=== PATIENT | female | born 1995 | race Two or more races ===

== ENCOUNTER → 2017-02-05 | Outpatient (CLI) | payer SELFPAY ==
--- NOTE | 2017-02-05 14:45 | RADIOLOGY REPORT (SQ) ---
EXAM DESCRIPTION: U/S [id number] TRNABD 1GES W/ODOP COMPLETED DATE/TIME: 02/05/2017 2:34 pm REASON FOR STUDY: Z34.81 ENCOUNTER FOR SUPRVSN OF NORMAL , FIRST TRIM COMPARISON: None. TECHNIQUE: Transabdominal static and realtime grayscale images acquired of the pelvis. Additional se lected spectral and color Doppler images recorded. All images stored on PACs. bHCG: Not applicable. LIMITATIONS: None. FINDINGS: FETUS: Living intrauterine . EGA: 9 week 6 day. MANISH: 09/04/2017. FHR: 171 beats per minute. SUBCHORIONIC BLEED: No. SIZE OF BLEED: Not applicable. UTERUS: No masses. No anomalies. CERVICAL LENGTH: 4.2 cm. Closed. RIGHT ADNEXA: Ovary not identified. No adnexal free fluid. No adnexal masses. LEFT ADNEXA: Ovary not identified. No adnexal free fluid. No adnexal masses. FREE FLUID: None. OTHER: No other significant finding. IMPRESSION: LIVING INTRAUTERINE . EGA 9 WEEK 6 DAY. Trimester of : First - 0 to 13 weeks. TECHNICAL DOCUMENTATION: JOB ID: [id number] [employer]- All Rights Reserved
== END ==
LOC: RAD 13:53
PROVIDERS: ATTEND Nurse Practitioner Women's Health
DX: Z34.81 Encounter for supervision of other normal pregnancy, first trimester (principal)
CPT/HCPCS: 76801

== ENCOUNTER 2017-03-17 08:22 | Emergency (ER) | payer SELFPAY ==
[2017-03-17] MEDS ORDERED: METOCLOPRAMIDE HCL INJ/PF 10 MG/2 ML SDV IV ONE (08:53)
[2017-03-17] MEDS: NORMAL SALINE 1000 ML 1,000 ML IV PRN ×2 (09:05→09:48)
[2017-03-17 09:35] LABS: ABSOLUTE LYMPHOCYTES (AUTO) 1.5 10^3/uL (0.5-4.7); ABSOLUTE MONOCYTES (AUTO) 0.9 10^3/uL (0.1-1.4); ABSOLUTE NEUT (AUTO) 9.7 10^3/uL (1.7-8.2); BASOPHILS % (AUTO) 0.3 % (0-2); EOSINOPHILS % (AUTO) 0.2 % (0-6); HEMATOCRIT 39.4 % (36.0-47.0); HEMOGLOBIN 13.5 g/dL (12.0-15.5); HGB HCT DIFFERENCE 1.1; LYMPHOCYTES % (AUTO) 12.4 % (13-45); MEAN CORPUSCULAR HEMOGLOBIN 30.5 pg (27.0-33.4); MEAN CORPUSCULAR HGB CONC 34.3 g/dL (32.0-36.0); MEAN CORPUSCULAR VOLUME 89 fl (80-97); MONOCYTES % (AUTO) 7.4 % (3-13); RED BLOOD COUNT 4.43 10^6/uL (3.72-5.28); RED CELL DISTRIBUTION WIDTH 13.1 % (11.5-14.0); SEGMENTED NEUTROPHILS % (AUTO) 79.7 % (42-78); WHITE BLOOD COUNT 12.1 10^3/uL (4.0-10.5)
[2017-03-17 09:38] LABS: APPEARANCE,URINE CLOUDY; BILIRUBIN,URINE NEGATIVE (NEGATIVE); GLUCOSE, URINE 50 mg/dL (NEGATIVE); KETONES,URINE 80 mg/dL (NEGATIVE); LEUKOCYTE ESTERASE,URINE TRACE (NEGATIVE); NITRITE,URINE NEGATIVE (NEGATIVE); PROTEIN,URINE 100 mg/dL (NEGATIVE); URINE SPECIFIC GRAVITY 1.029; UROBILINOGEN,URINE NEGATIVE mg/dL (<2.0)
[2017-03-17 09:54] LABS: ALANINE AMINOTRANSFERASE 27 U/L (5-35); ALBUMIN 5.2 g/dL (3.7-5.6); ALKALINE PHOSPHATASE 100 U/L (50-135); ASPARTATE AMINO TRANSFERASE 25 U/L (5-30); BILIRUBIN,DIRECT 0.6 mg/dL (0.0-0.4); BILIRUBIN,TOTAL 0.9 mg/dL (0.2-1.3); BLOOD UREA NITROGEN 10 mg/dL (7-20); CALCIUM 11.1 mg/dL (8.4-10.2); CARBON DIOXIDE 16 mmol/L (22-30); CHLORIDE 105 mmol/L (98-107); CREATININE RESULT 0.54 mg/dL (0.52-1.25); GLUCOSE 71 mg/dL (75-110); LIPASE 140.6 U/L (23-300); TOTAL PROTEIN 8.4 g/dL (6.3-8.2)
[2017-03-17 10:20] LABS: POTASSIUM 3.9 mmol/L (3.6-5.0); SODIUM 141.4 mmol/L (137-145)
[2017-03-17 10:23] LABS: ANION GAP 20 (5-19)
--- NOTE | 2017-03-17 12:21 | ER Document Report ---
ED General - General Chief Complaint: Nausea/Vomiting Stated Complaint: VOMITING Time Seen by Provider: 03/17/17 08:53 TRAVEL OUTSIDE OF THE [place] IN LAST 30 DAYS: No - HPI Patient complains to provider of: Nausea vomiting Notes: Patient is coming approximate 15 weeks for nausea vomiting. Patient states that she was on samples of likely just by the health department and however has ran out. Patient states vomiting for the last 2 days feels she is getting hydrated. Patient is a . 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 Patient denies any other medical problems denies any antibiotics or recent travel. Patient denies any fevers chills nausea vomiting chest pain abdominal pain vaginal bleeding dysuria. - Related Data Allergies/Adverse Reactions: No Known Allergies Allergy (Verified 03/17/17 08:26) Home Medications: Current Home Medications Pnv No.122/Iron/Folic Acid [ Multi Tablet] 1 each PO DAILY 03/17/17 [ History] Past Medical History - Social History Smoking Status: Former Smoker Frequency of alcohol use: None Drug Abuse: None Family History: Reviewed & Not Pertinent Renal/ Medical History: Denies: Hx Peritoneal Dialysis Surgical Hx: Negative - Immunizations Immunizations up to date: Yes Hx Diphtheria, Pertussis, Tetanus Vaccination: Yes Review of Systems - Review of Systems Constitutional: No symptoms reported EENT: No symptoms reported Cardiovascular: No symptoms reported Respiratory: No symptoms reported Gastrointestinal: Nausea, Vomiting Genitourinary: No symptoms reported Female Genitourinary: No symptoms reported Musculoskeletal: No symptoms reported Skin: No symptoms reported Hematologic/Lymphatic: No symptoms reported Neurological/Psychological: No symptoms reported -: Yes All other systems reviewed and negative Physical Exam - Vital signs Vitals: Temp Pulse Resp BP Pulse Ox 98.7 F 110 H 16 138/88 H 99 03/17/17 08:27 03/17/17 08:27 03/17/17 08:27 03/17/17 08:27 03/17/17 08:27 Interpretation: Normal - General General appearance: Appears well, Alert - HEENT Head: Normocephalic, Atraumatic Eyes: Normal Pupils: PERRL - Respiratory Respiratory status: No respiratory distress Chest status: Nontender Breath sounds: Normal Chest palpation: Normal - Cardiovascular Rhythm: Regular Heart sounds: Normal auscultation Murmur: No - Abdominal Inspection: Normal Distension: No distension Bowel sounds: Normal Tenderness: Nontender Organomegaly: No organomegaly - Back Back: Normal, Nontender - Extremities General upper extremity: Normal inspection, Nontender, Normal color, Normal ROM , Normal temperature General lower extremity: Normal inspection, Nontender, Normal color, Normal ROM , Normal temperature, Normal weight bearing. No: Rahul's sign - Neurological Neuro grossly intact: Yes Cognition: Normal Orientation: AAOx4 [place] Coma Scale Eye Opening: Spontaneous [place] Coma Scale Verbal: Oriented [place] Coma Scale Motor: Obeys Commands [place] Coma Scale Total: 15 Speech: Normal Motor strength normal: LUE, RUE, LLE, RLE Sensory: Normal - Psychological Associated symptoms: Normal affect, Normal mood - Skin Skin Temperature: Warm Skin Moisture: Dry Skin Color: Normal Course - Re-evaluation Re-evalutation: 03/17/17 13:34 The patient presents with nausea vomiting without signs of peritonitis or other life-threatening or serious etiology. The patient appears stable for discharge and has been instructed to return immediately if the symptoms worsen in any way , or in 8-12hr if not improved for re-evaluation. The patient has been instructed to return if the symptoms worsen or change in any way. Patient urinalysis that showed ketosis and protein however this is more likely related to dehydration status. Patient was given 2 L of fluid here and was able to drink Gatorade while here. Will discharge patient home on Reglan other [id number] options were given to the patient. Patient will be discharged home. - Vital Signs Vital signs: Temp Pulse Resp BP Pulse Ox 98.7 F 84 18 110/54 L 100 03/17/17 12:26 03/17/17 12:26 03/17/17 12:26 03/17/17 12:26 03/17/17 12:26 - Laboratory Result Diagrams: 03/17/17 09:06 03/17/17 09:06 Laboratory results interpreted by me: 03/17/17 03/17/17 03/17/17 09:06 09:06 09:06 WBC 12.1 H Seg Neutrophils % 79.7 H Lymphocytes % 12.4 L Absolute Neutrophils 9.7 H Carbon Dioxide 16 L Anion Gap 20 H Glucose 71 L Calcium 11.1 H Direct Bilirubin 0.6 H Total Protein 8.4 H Beta HCG, Quant 12653.00 H Urine Protein 100 H Urine Glucose (UA) 50 H Urine Ketones 80 H Ur Leukocyte Esterase TRACE H Urine Ascorbic Acid 40 H Discharge - Discharge Clinical Impression: Nausea/vomiting in Condition: Good Disposition: HOME, SELF-CARE Instructions: Dehydration ([facility]), ([facility]), Vomiting ([facility]) Additional Instructions: You have been seen for vomiting during . You should continue to drink plenty of water and consider taking a solution such as Pedialyte if your having difficulty eating food. Please return if you become unable to drink any fluids for more than 12 hours, urinate less than twice a day, pass out, or have any other symptoms that are concerning to you. For nausea and vomiting during I recomment: Start with 10-12.5 mg of pyridoxine (vitamin B6) three times a day for 2 days. If not fully effective, Increase to 12.5 mg of pyridoxine four times a day for 2 days. If not fully effective, Increase to 25 mg of pyridoxine three times a day for 2 days. If not fully effective, Continue 25 mg pyridoxine 3 times a day, and add 12.5 mg of doxylamine before bedtime each day for 2 days. If not fully effective, Continue 25 mg pyridoxine 3 times a day, and take 12.5 mg of doxylamine twice a day. If not fully effective, Continue 25 mg pyridoxine 3 times a day, and take 12.5 mg of doxylamine three times a day. If not fully effective, Continue 25 mg pyridoxine 3 times a day, and 12.5 mg of doxylamine 3 times a day , while adding Emetrol, one to two tablespoons (15-30 cc) taken once or twice a day as needed. (Emetrol is an gqqy-lcb-awodaes mixture of sugar syrups and phosphoric acid [phosphorylated carbohydrate solution]) that acts by soothing the actual wall of the gastrointestinal tract). If not fully effective, Consult with your doctor. Follow-up with your primary care physician return to the ER symptoms worsen he may also try the Reglan prescribed. Prescriptions: Metoclopramide HCl [Reglan] 5 mg PO Q6 #30 tablet Forms: Return to Work
[2017-03-17 12:46] VITALS: BP 110/54
== END 2017-03-17 12:47 | disposition home or self-care (01) ==
LOC: ER 08:22
DX: O21.9 Vomiting of pregnancy, unspecified (principal); Z3A.15 15 weeks gestation of pregnancy
CPT/HCPCS: 99284; 96361; 96374; 36415; 84702; 83690; 85025; 80053; 81001; J2765; J7030

== ENCOUNTER 2017-04-10 22:25 | Emergency (ER) | payer SELFPAY ==
[2017-04-10 22:36] VITALS: BP 124/62
== END 2017-04-10 23:18 | disposition left against medical advice (07) ==
LOC: ER 22:25
DX: Z53.21 Procedure and treatment not carried out due to patient leaving prior to being seen by health care provider (principal)

== ENCOUNTER → 2017-04-24 | Outpatient (CLI) | payer SELFPAY ==
--- NOTE | 2017-04-24 14:18 | RADIOLOGY REPORT (SQ) ---
EXAM DESCRIPTION: U/S OB 14+ TRNABD 1GES W/O DOP COMPLETED DATE/TIME: 04/24/2017 2:01 pm REASON FOR STUDY: ENCNTR FOR SUPERVISION OF OTHER NORMAL , SECOND TRIMESTER (Z34.82) Z34.82 ENCOUNTER FOR SUPRVSN OF NORMAL , SECOND TRI COMPARISON: 02/05/2017 TECHNIQUE: Static and Dynamic grayscale imaging performed of gravid uterus using transabdominal appr oac. Additional selected color Doppler and spectral images recorded. All stored on PACS. LIMITATIONS: None. FINDINGS: EGA: 21 weeks MANISH: 09/04/2017 EFW: 372 +/-55 grams PERCENTILE: Not calculated LVP : 4.4 cm PLACENTA: Anterior grade 1 PRESENTATION: Cephalic. ANATOMY: HEART RATE: 147 beats per minute. FOUR CHAMBER HEART: Visualized. THREE VESSEL CORD: Yes. CORD INSERTION: Visualized. KIDNEYS AND BLADDER: Visualized. Appear normal. STOMACH: Visualized. Appears normal. SPINE: Normal as visualized. BRAIN AND LATERAL VENTRICLES: Visualized. Appear normal. OTHER: No other significant finding. MATERNAL ADNEXA: Maternal ovaries not visualized. CERVICAL LENGTH: 3.5 cm Closed. OTHER: No other significant finding. IMPRESSION: LIVING INTRAUTERINE . ESTIMATED GESTATIONAL AGE 21 weeks. NO VISUALIZED ANOMALIES. Trimester of : Second trimester - 13 weeks 1 day to 27 weeks 6 days. TECHNICAL DOCUMENTATION: JOB ID: [id number] [employer]- All Rights Reserved
== END ==
LOC: RAD 12:53
PROVIDERS: ATTEND Nurse Practitioner Women's Health
DX: Z34.82 Encounter for supervision of other normal pregnancy, second trimester (principal)
CPT/HCPCS: 76805

== ENCOUNTER → 2017-08-06 | Outpatient (CLI) | payer SELFPAY ==
[2017-08-06 15:10] LABS: ALANINE AMINOTRANSFERASE 26 U/L (5-35); ALKALINE PHOSPHATASE 149 U/L (50-135); ANION GAP 9 (5-19); ASPARTATE AMINO TRANSFERASE 20 U/L (5-30); BILIRUBIN,DIRECT 0.2 mg/dL (0.0-0.4); BILIRUBIN,TOTAL 0.2 mg/dL (0.2-1.3); BLOOD UREA NITROGEN 5 mg/dL (7-20); CALCIUM 10.1 mg/dL (8.4-10.2); CARBON DIOXIDE 24 mmol/L (22-30); CHLORIDE 106 mmol/L (98-107); GLUCOSE 75 mg/dL (75-110); LDH 490 U/L (340-670); POTASSIUM 3.9 mmol/L (3.6-5.0); SODIUM 138.9 mmol/L (137-145); TOTAL PROTEIN 6.8 g/dL (6.3-8.2)
== END ==
LOC: OD 14:08
PROVIDERS: ATTEND Nurse Practitioner Women's Health
DX: R03.0 Elevated blood-pressure reading, without diagnosis of hypertension (principal)
CPT/HCPCS: 36415; 80053; 83615; 84550

== ENCOUNTER 2017-08-07 13:24 | Outpatient (CLI) | payer SELFPAY ==
--- NOTE | 2017-08-07 14:48 | Non Stress Test Report ---
Non Stress Test Datetime Report Generated by CPN: 08/07/2017 14:48 INDICATION Indication for Study: Ordered by Provider Indication for Study (NST) Other: H James CNM MONITORING Monitor Explained: Monitor Explained; Test Explained; Patient Verbalized Understanding Time on Monitor: 08/07/2017 13:42 Time off Monitor: 08/07/2017 14:10 NST Duration: 28 NST INTERVENTIONS NST Interventions: None BABY A: [id number] Movement : Present Contraction Frequency : irregular FHR Baseline : 145 Accelerations : 15X15 Decelerations : None Variability : Moderate 6-25bpm NST Review: Meets Criteria for Reactive NST NST Review and Verified By : Renee Neri RNC NST Results: Reactive NST REPORT Report Trigger: Send Report
--- NOTE | 2017-08-07 15:34 | RADIOLOGY REPORT (SQ) ---
EXAM DESCRIPTION: U/S OB LIMITED COMPLETED DATE/TIME: 08/07/2017 3:06 pm REASON FOR STUDY: GHTN, Need Growth/ROLO/Pres COMPARISON: None. TECHNIQUE: Limited transvaginal grayscale ultrasound for evaluation of specific requested obstetrica l parameters. LIMITATIONS: None. FINDINGS: Estimated gestational age 35 weeks 5 days with estimated due date 09/06/2017. Estimated fet al weight 2673 g. heart rate 137. ROLO 10.5. Vertex presentation. IMPRESSION: LIMITED OBSTETRICAL ULTRASOUND WITH MEASURED PARAMETERS DELINEATED ABOVE. Trimester of : Third trimester - 28 weeks to delivery. TECHNICAL DOCUMENTATION: JOB ID: [id number] [employer]- All Rights Reserved
[2017-08-07 16:46] LABS: 24 HOUR URINE PROTEIN RESULT 229 mg/day (42-225); URINE PROTEIN 14.7 mg/dL (<12)
== END 2017-08-07 16:05 | disposition home or self-care (01) ==
LOC: LC 13:24
PROVIDERS: ATTEND Student in an Organized Health Care Education/Training Program
PROC: 4A1HXCZ Monitoring of Products of Conception, Cardiac Rate, External Approach (ICD-10-PCS; principal; 2017-08-07)
DX: O13.3 Gestational [pregnancy-induced] hypertension without significant proteinuria, third trimester (principal); Z3A.35 35 weeks gestation of pregnancy
CPT/HCPCS: 59025; 76815; 84156

== ENCOUNTER 2017-08-10 14:51 | Outpatient (CLI) | payer SELFPAY ==
--- NOTE | 2017-08-10 15:31 | Non Stress Test Report ---
Non Stress Test Datetime Report Generated by CPN: 08/10/2017 15:31 DEMOGRAPHIC EGA NST: 36.0 INDICATION Indication for Study: Ordered by Provider VITAL SIGNS Temperature - NST: 97.7 RESP - NST: 16 MONITORING Monitor Explained: Monitor Explained; Test Explained; Patient Verbalized Understanding Time on Monitor: 08/10/2017 15:05 Time off Monitor: 08/10/2017 15:25 NST Duration: 20 NST INTERVENTIONS NST Interventions: None Physician Notified NST: Dr Quarles-Yamil BABY A: [id number] BABY A Movement : Present Contraction Frequency : x1 FHR Baseline : 145 Accelerations : 15X15 Decelerations : None (Annotations: Data stored by N on behalf of user) Variability : Moderate 6-25bpm NST Review: Meets Criteria for Reactive NST NST Review and Verified By : Kevin Wheatley RN NST Results: Reactive NST REPORT Report Trigger: Send Report
== END 2017-08-10 15:27 | disposition home or self-care (01) ==
LOC: LC 14:51
PROVIDERS: ATTEND Obstetrics & Gynecology
PROC: 4A1HXCZ Monitoring of Products of Conception, Cardiac Rate, External Approach (ICD-10-PCS; principal; 2017-08-10)
DX: O60.03 Preterm labor without delivery, third trimester (principal); Z3A.36 36 weeks gestation of pregnancy
CPT/HCPCS: 59025

== ENCOUNTER 2017-08-27 10:32 | Inpatient (IN) | payer MEDICAID ==
[2017-08-27] MEDS ORDERED: RINGERS SOLUTION,LACTATED 1,000 ML IV ONE (10:57)
[2017-08-27] MEDS ORDERED: RINGERS SOLUTION,LACTATED 1,000 ML IV PRN (10:57)
[2017-08-27] MEDS ORDERED: MISOPROSTOL 0.1 MG TABLET PO SCH ×2 (11:00→12:20)
[2017-08-27] MEDS ORDERED: MISOPROSTOL 0.1 MG TABLET PV SCH ×2 (11:00→12:20)
[2017-08-27 11:04] LABS: APPEARANCE,URINE SLIGHTLY-CLOUDY; BILIRUBIN,URINE NEGATIVE (NEGATIVE); COLOR,URINE YELLOW; GLUCOSE, URINE NEGATIVE (NEGATIVE); KETONES,URINE NEGATIVE (NEGATIVE); LEUKOCYTE ESTERASE,URINE TRACE (NEGATIVE); NITRITE,URINE NEGATIVE (NEGATIVE); PROTEIN,URINE NEGATIVE (NEGATIVE); URINE SPECIFIC GRAVITY 1.005; UROBILINOGEN,URINE NEGATIVE mg/dL (<2.0)
[2017-08-27 11:18] LABS: URINE AMPHETAMINES SCREEN NEGATIVE; URINE BARBITURATES SCREEN NEGATIVE; URINE BENZODIAZEPINES SCREEN NEGATIVE; URINE COCAINE SCREEN NEGATIVE; URINE MARIJUANA (THC) SCREEN NEGATIVE; URINE METHADONE SCREEN NEGATIVE; URINE PHENCYCLIDINE SCREEN NEGATIVE
[2017-08-27 11:30] LABS: UR PRO/CREAT RATIO RESULT 0.4 mg/mg (0.0-0.2); URINE CREATININE 51.9 mg/dL (16-327); URINE PROTEIN 19.5 mg/dL (<12)
[2017-08-27] MEDS ORDERED: MISOPROSTOL 0.1 MG TABLET ONE ×2 (12:15→22:23)
[2017-08-27 14:32] LABS: ABSOLUTE BASOPHILS # (AUTO) 0.1 10^3/uL (0.0-0.2); ABSOLUTE LYMPHOCYTES (AUTO) 1.7 10^3/uL (0.5-4.7); ABSOLUTE MONOCYTES (AUTO) 0.7 10^3/uL (0.1-1.4); ABSOLUTE NEUT (AUTO) 8.1 10^3/uL (1.7-8.2); BASOPHILS % (AUTO) 0.8 % (0-2); EOSINOPHILS % (AUTO) 0.3 % (0-6); HEMOGLOBIN 12.9 g/dL (12.0-15.5); MEAN CORPUSCULAR HGB CONC 33.9 g/dL (32.0-36.0); MEAN CORPUSCULAR VOLUME 89 fl (80-97); MONOCYTES % (AUTO) 6.2 % (3-13); PLATELET COUNT 239 10^3/uL (150-450); RED BLOOD COUNT 4.29 10^6/uL (3.72-5.28); RED CELL DISTRIBUTION WIDTH 13.1 % (11.5-14.0); SEGMENTED NEUTROPHILS % (AUTO) 76.7 % (42-78); TOTAL CELLS COUNTED % (AUTO) 100 %; WHITE BLOOD COUNT 10.6 10^3/uL (4.0-10.5)
[2017-08-27 14:39] LABS: GLUCOSE 67 mg/dL (75-110); POTASSIUM 3.9 mmol/L (3.6-5.0); TOTAL PROTEIN 6.7 g/dL (6.3-8.2); URIC ACID 4.1 mg/dL (2.5-6.2)
[2017-08-27 14:41] LABS: ALANINE AMINOTRANSFERASE 26 U/L (5-35); ALKALINE PHOSPHATASE 188 U/L (50-135); ANION GAP 10 (5-19); ASPARTATE AMINO TRANSFERASE 21 U/L (5-30); BILIRUBIN,DIRECT 0.4 mg/dL (0.0-0.4); BILIRUBIN,TOTAL 0.4 mg/dL (0.2-1.3); BLOOD UREA NITROGEN 5 mg/dL (7-20); CALCIUM 9.7 mg/dL (8.4-10.2); CARBON DIOXIDE 22 mmol/L (22-30); CHLORIDE 107 mmol/L (98-107); LDH 489 U/L (340-670); SODIUM 139.2 mmol/L (137-145)
[2017-08-27] MEDS ORDERED: LIDOCAINE 1% INJ-PF (10 MG/ML) 30 ML SDV ONE (16:59)
[2017-08-27] MEDS ORDERED: MISOPROSTOL 0.2 MG TABLET ONE (16:59)
[2017-08-27] MEDS ORDERED: OXYTOCIN/NORMAL SALINE 20 UNIT/1,000 ML RTUINJ ONE (16:59)
--- NOTE | 2017-08-27 17:02 | L&D Progress Notes ---
PROGRESS NOTES Datetime Report Generated by CPN: 08/27/2017 17:02 PROGRESS NOTE Impression: Normal Progression of Labor; Reassuring Heart Rate Procedures: Sterile Vag Exam Plan: Continue Present Management; Induction Informed Consent Obtained: Vaginal Delivery Vital Signs : Reviewed Comment: Comfortable, hungry would like to eat Will start pitocin VAGINAL EXAM Dilatation: 3 Dilatation: 1 Effacement: 80 Effacement: 50 Station: 0 Station: -1 Contractions: 3-5 Contractions: irregular MEMBRANES Membranes: Intact FETUS A FHR - Baseline: 155 Monitoring: External US Variability: Moderate 6-25bpm Accelerations: 15X15 Decelerations: None FHR Category: Category I Estimated Weight (gm): 3300 Presentation: Vertex SIGNATURE SIGNATURE: 10,[id number];14,[id number] SIGNATURE: ,[id number] SIGNATURE: ,[id number] Assignment: Jia Anne MD Signature: with User ID: [email or web address] : with User ID: [email or web address]
[2017-08-27] MEDS: OXYTOCIN/NORMAL SALINE 20 UNIT/1,000 ML RTUINJ IV PRN (17:06)
[2017-08-27] MEDS ORDERED: MISOPROSTOL 0.1 MG TABLET PO ONE (22:17)
[2017-08-27] MEDS ORDERED: MISOPROSTOL 0.1 MG TABLET PV ONE (22:18)
[2017-08-27] MEDS ORDERED: ACETAMINOPHEN 325 MG TABLET PO ONE (22:19)
[2017-08-27] MEDS ORDERED: ACETAMINOPHEN 325 MG TABLET ONE (22:23)
[2017-08-28] MEDS ORDERED: NALBUPHINE HCL INJ 10 MG/1 ML AMPULE ONE (04:09)
[2017-08-28] MEDS ORDERED: PROMETHAZINE HCL INJ 25 MG/1 ML VIAL ONE (04:09)
--- NOTE | 2017-08-28 10:01 | L&D Progress Notes ---
PROGRESS NOTES Datetime Report Generated by CPN: 08/28/2017 10:00 PROGRESS NOTE Impression: Reassuring Heart Rate Impression Other: GHTN Procedures: Artificial ROM Procedures- Other: clear fluid and moderate bloody show Plan: Induction Informed Consent Obtained: Vaginal Delivery; Induction of Labor Comment: GHTN at 38w3d. denies YADAV/visual changes/RUQ pain. P: restart pitocin and continue IOL. anticipate VAGINAL EXAM Dilatation: 5 Effacement: 90 Station: 0 Contractions: irreg FETUS A FHR - Baseline: 135 Monitoring: External US Variability: Moderate 6-25bpm Accelerations: 15X15 Decelerations: None FHR Category: Category I : 38+3 Estimated Weight (gm): 3200 FETUS C SIGNATURE: [id number];10,[id number] Assignment: Julianne Iqbal MD Signature: with User ID: [email or web address] : with User ID: [email or web address]
[2017-08-28] MEDS ORDERED: FENTANYL CITRATE INJ/PF 100 MCG/2 ML AMPUL ONE (10:52)
[2017-08-28] MEDS ORDERED: BUPIVACAINE HCL 0.25 % INJ/PF (2.5 MG/1 ML) 30 ML VIAL ONE (10:53)
[2017-08-28] MEDS ORDERED: FENTANYL/BUPIVACAINE/NS/PF 200 MCG/100 ML RTUINJ EPI ONE (10:53)
[2017-08-28] MEDS ORDERED: EPHEDRINE SULFATE INJ 50 MG/1 ML AMPULE ONE (10:53)
[2017-08-28] MEDS ORDERED: PHENYLEPHRINE HCL INJ/PF 10 MG/1 ML SDV ONE (10:53)
[2017-08-28] MEDS ORDERED: MISOPROSTOL 0.2 MG TABLET ONE (10:54)
[2017-08-28] MEDS ORDERED: LIDOCAINE 1% INJ-PF (10 MG/ML) 30 ML SDV ONE (10:54)
[2017-08-28] MEDS ORDERED: GLYCERIN/WITCH HAZEL LEAF 1 EACH MED..PAD TP PRN (14:38)
[2017-08-28] MEDS ORDERED: ACETAMINOPHEN WITH CODEINE #3 TABLET PO PRN ×2 (14:38)
[2017-08-28] MEDS ORDERED: OXYTOCIN/NORMAL SALINE 20 UNIT/1,000 ML RTUINJ IV PRN (14:38)
[2017-08-28] MEDS ORDERED: PROMETHAZINE HCL 25 MG SUPP.RECT PR PRN (14:38)
[2017-08-28] MEDS ORDERED: MEASLES,MUMPS&RUBELLA VACC/PF 0.5 ML VIAL SUBCUT PRN (14:38)
[2017-08-28] MEDS ORDERED: DIPHENHYDRAMINE HCL 25 MG CAPSULE PO PRN (14:38)
[2017-08-28] MEDS ORDERED: DIPH/PERTUSS(ACELL)/TETANUS VAC/PF 0.5 ML SYR (>=10YO) IM PRN (14:38)
[2017-08-28] MEDS ORDERED: PROMETHAZINE HCL INJ 25 MG/1 ML VIAL IV PRN (14:38)
[2017-08-28] MEDS ORDERED: DIBUCAINE 1% OINTMENT 28 GM TP PRN (14:38)
[2017-08-28] MEDS ORDERED: PROMETHAZINE HCL 25 MG TABLET PO PRN (14:38)
[2017-08-28] MEDS ORDERED: NA PHOS,M-B/NA PHOS,DI-BA (ADULT) 133 ML ENEMA PR PRN (14:38)
[2017-08-28] MEDS ORDERED: ACETAMINOPHEN 325 MG TABLET PO PRN (14:38)
[2017-08-28] MEDS ORDERED: MISOPROSTOL 0.2 MG TABLET PR ONE (14:38)
[2017-08-28] MEDS ORDERED: PSEUDOEPHEDRINE HCL 30 MG TABLET PO PRN (14:38)
[2017-08-28] MEDS ORDERED: BENZOCAINE/MENTHOL AEROSOL SPRAY 56 ML TOP PRN (14:38)
[2017-08-28] MEDS ORDERED: MAGNESIUM HYDROXIDE SUSP 30 ML UDCUP PO PRN (14:38)
[2017-08-28] MEDS ORDERED: ZOLPIDEM TARTRATE 5 MG TABLET PO PRN (14:38)
[2017-08-28] MEDS ORDERED: OXYTOCIN/NORMAL SALINE 20 UNIT/1,000 ML RTUINJ ONE (15:53)
--- NOTE | 2017-08-28 16:45 | Admission Physical ---
Datetime Report Generated by CPN: 08/28/2017 16:44 CURRENT ADMISSION Hx Assessment: The History has been Reviewed and is Current Chief Complaint: Sent from OB Office for Evaluation and Treatment - Please Specify Chief Complaint Other: sent in from [facility] for headache and elevated bp of 146/98. Indication for Induction: Gestational HTN Indication for Induction: Term, Intrauterine ; No Active Labor; Intact Membranes; Induction of Labor Indication for Induction- Other: ghtn vs. pre-e labs pending Admit Plan: Admit to Unit; Initiate Labor Induction Protocol ALLERGIES Medication Allergies: No Medication Allergies: No Known Allergies (08/27/2017) Medication Allergies: No Known Allergies (08/07/2017) Medication Allergies: No Known Allergies (03/17/2017) Latex: No Latex Allergies OBSTETRICAL HISTORY EDC: 09/08/2017 00:00 : 1 Para: 0 Term: 0 : 0 SAB: 0 IAB: 0 Ectopic: 0 Livin Cesareans: 0 VBACs: 0 Multiple Births: 0 Gestational Diabetes: No Rh Sensitization: No Incompetent Cervix: No ABRAHAN: No Infertility: No ART Treatment: No Uterine Anomaly: No IUGR: No Hx Previous C/S: No Macrosomia: No Hx Loss/Stillborn: No PIH: Yes Hx : No Placenta Previa/Abruption: No Depression/PP Depression: No PTL/PROM: No Post Hemorrhage: No Current Procedures: Ultrasound; NST Obstetrical History Comments: G1: current, GHTN vs preeclampsia SEE RECORDS Alcohol: No Marijuana : No Cocaine: No Other Illicit Drugs: No Cigarettes: Light Tobacco Smoker. [id number] Cigarette Frequency: < 5 per day Cigarette Comments: Pt states no smoking during . 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 Heart Disease: No Hosp/Surgery: No Autoimmune Disorder: No Anesthetic Complications: No Kidney Disease: No Abnormal Pap Smear: No Neuro/Epilepsy: No Psychiatric Disorders: No Other Medical Diseases: No Hepatitis/Liver Disease: No Significant Family History: No Varicosities/Phlebitis: No Trauma/Violence : No Thyroid Dysfunction: No INFECTIOUS HISTORY Gonorrhea: No Genital Herpes: No Chlamydia: No Tuberculosis: No Syphilis: No Hepatitis: No HIV/AIDS Exposure: No Rash or Viral Illness: No HPV: No PHYSICAL EXAM General: Normal HEENT: Normal Neurologic: Deferred Thyroid: Normal Heart: Normal Lungs: Normal Breast: Normal Back: Normal Abdomen: Normal Genitourinary Exam: Normal Extremities: Normal DTRs: Normal Pelvic Type: Adequate Vital Signs: Reviewed VAGINAL EXAM Dilatation: 5 Dilatation: 3 Dilatation: 1 Effacement: 90 Effacement: 80 Effacement: 50 Station: 0 Station: 0 Station: -1 Contraction Comments: irreg Contraction Comments: 3-5 Contraction Comments: irregular MEMBRANES Membranes: Intact FETUS A EGA: 38.2 Monitoring: External US FHR- Baseline: 145 Variability: Moderate 6-25bpm Accelerations: 15X15 Decelerations: None FHR Category: Category I Estimated Weight (gm): 3200 Estimated Weight (gm): 3300 Presentation: Vertex Admit Comment: Pt sent in from [facility] for elevated bp and headache. Pt has had elevated bps in the office on several occassionand pre-e work up and 24 hour urin previously wnl. Pt has new on set headache last night, not resolved with tylenol, denies visual dist. or epigastric pain. States active fetus, denies vb, or lof, rare ctx. care @ [facility], uncomplicated other than elevated bp. Pt denies medical or surgical hx. NKDA GBS negative 08/06/17 Admit to L _ D, pre-e labs pending. Will do a dose of cytotec and reassess for plan. PLANS FOR LABOR AND DELIVERY Labor and Delivery: None Pain Management: Epidural Feeding Preference: Breast Benefit of Breast Feed Discussed: Yes Circumcision: No INFORMED CONSENT Informed Consent Obtained: Vaginal Delivery; Induction of Labor Informed Consent Obtained: Vaginal Delivery Assignment: Jia Anne MD Signature: with User ID: [email or web address] : with User ID: [email or web address]
[2017-08-28] MEDS: OXYTOCIN/NORMAL SALINE 20 UNIT/1,000 ML RTUINJ IV PRN (17:22)
[2017-08-28] MEDS: DOCUSATE SODIUM 100 MG CAPSULE PO SCH (18:14)
[2017-08-28] MEDS: FERROUS SULFATE 325 MG TABLET PO SCH (18:14)
[2017-08-28] MEDS: FAMOTIDINE 20 MG TABLET PO SCH (21:48)
[2017-08-28] MEDS: IBUPROFEN 800 MG TABLET PO SCH (21:48)
[2017-08-29] MEDS: IBUPROFEN 800 MG TABLET PO SCH ×3 (05:26→21:41)
[2017-08-29 07:24] LABS: HEMATOCRIT 24.6 % (36.0-47.0); MEAN CORPUSCULAR HEMOGLOBIN 29.7 pg (27.0-33.4); MEAN CORPUSCULAR HGB CONC 33.4 g/dL (32.0-36.0); MEAN CORPUSCULAR VOLUME 89 fl (80-97); PLATELET COUNT 182 10^3/uL (150-450); RED BLOOD COUNT 2.77 10^6/uL (3.72-5.28); WHITE BLOOD COUNT 13.8 10^3/uL (4.0-10.5)
[2017-08-29 07:28] LABS: HEMOGLOBIN 8.2 g/dL (12.0-15.5)
[2017-08-29] MEDS: PRENATAL VITAMIN W DHA CAPSULE PO SCH (09:29)
[2017-08-29] MEDS: FERROUS SULFATE 325 MG TABLET PO SCH ×2 (09:29→18:31)
[2017-08-29] MEDS: DOCUSATE SODIUM 100 MG CAPSULE PO SCH ×2 (09:29→18:32)
--- NOTE | 2017-08-29 10:13 | PDOC PROGRESS REPORT ---
Subjective-OB Progress Note for:: 08/29/17 Physical Exam (OB) Vital Signs: Temp Pulse Resp BP Pulse Ox 98.3 F 85 15 123/73 97 08/29/17 08:22 08/29/17 08:22 08/29/17 08:22 08/29/17 08:22 08/29/17 08:22 Intake & Output 08/28/17 08/29/17 08/30/17 06:59 06:59 06:59 Weight 67.1 kg - PIH/Pre-Eclampsia DTR's: 1 + Clonus: Negative Headache: Absent Epigastric Pain: No Visual Changes: No - Lochia Lochia Amount: Scant < 10 ml Lochia Color: Rubra/Red - Abdomen Description: Tender, Soft Hernia Present: No Bowel Sounds: Normoactive Flatus Presence: Present Stool: Yes Fundal Description: Firm Fundal Height: u/u - u/2 Objective-Diagnostic Laboratory: 08/29/17 06:56 08/27/17 13:38 08/29/17 06:56 WBC 13.8 H RBC 2.77 L Hgb 8.2 L D Hct 24.6 L MCV 89 MCH 29.7 MCHC 33.4 RDW 13.0 Plt Count 182
[2017-08-29] MEDS: FAMOTIDINE 20 MG TABLET PO SCH ×2 (10:46→21:41)
[2017-08-29] MEDS: SENNOSIDES/DOCUSATE 8.6-50 MG 1 EACH TABLET PO SCH (10:46)
[2017-08-30] MEDS: IBUPROFEN 800 MG TABLET PO SCH (05:32)
[2017-08-30 08:20] VITALS: BP 131/92
[2017-08-30] MEDS: FERROUS SULFATE 325 MG TABLET PO SCH (09:10)
[2017-08-30] MEDS: FAMOTIDINE 20 MG TABLET PO SCH (09:10)
[2017-08-30] MEDS: SENNOSIDES/DOCUSATE 8.6-50 MG 1 EACH TABLET PO SCH (09:10)
[2017-08-30] MEDS: DOCUSATE SODIUM 100 MG CAPSULE PO SCH (09:10)
[2017-08-30] MEDS: PRENATAL VITAMIN W DHA CAPSULE PO SCH (09:10)
--- NOTE | 2017-08-30 10:02 | PDOC PROGRESS REPORT ---
Subjective-OB Progress Note for:: 08/30/17 Subjective: Sitting up in bed holding baby, no c/o, ready to go home, scant bleeding, , voiding, eating well Physical Exam (OB) Vital Signs: Temp Pulse Resp BP Pulse Ox 97.9 F 83 16 131/92 H 99 08/30/17 07:38 08/30/17 07:38 08/30/17 07:38 08/30/17 07:38 08/30/17 07:38 - PIH/Pre-Eclampsia DTR's: 1 + Clonus: Negative Headache: Absent Epigastric Pain: No Visual Changes: No - Lochia Lochia Amount: Scant < 10 ml Lochia Color: Rubra/Red - Abdomen Description: Tender, Soft Hernia Present: No Fundal Description: Firm, Midline Fundal Height: u/3 - u/4 Objective-Diagnostic Laboratory: 08/29/17 06:56 08/27/17 13:38 Assessment and Plan(PN) - Assessment and Plan (1) Anemia, posthemorrhagic, acute Is this a current diagnosis for this admission?: Yes (2) Gestational hypertension Qualifiers: Trimester: third trimester Qualified Code(s): O13.3 - Gestational [ -induced] hypertension without significant proteinuria, third trimester Is this a current diagnosis for this admission?: Yes (3) Delivery normal Is this a current diagnosis for this admission?: Yes - Time Spent with Patient Time with patient: Less than 15 minutes Medications reviewed and adjusted accordingly: Yes - Disposition Anticipated Discharge: Home Within: Other - home today
--- NOTE | 2017-08-30 10:06 | PDOC DISCHARGE SUMMARY ---
Final Diagnosis Discharge Date: 08/30/17 - Final Diagnosis (1) Anemia, posthemorrhagic, acute Is this a current diagnosis for this admission?: Yes (2) Gestational hypertension Is this a current diagnosis for this admission?: Yes (3) Delivery normal Is this a current diagnosis for this admission?: Yes Discharge Data - Discharge Medication Prescriptions: Ferrous Sulfate [Feosol 325 mg Tablet] 325 mg PO BID #60 tablet Home Medications: No122/Iron/Folic Acid [ Multi Tablet] 1 each PO DAILY 03/17/17 Ferrous Sulfate [Feosol 325 mg Tablet] 325 mg PO BID #60 tablet 08/30/17 Reason(s) for Admission: Induction of Labor, PIH Procedures: NST, Ultrasound Intrapartum Procedure(s): Spontaneous Vaginal Delivery Complication(s): Laceration-Vaginal, Laceration-Labial, Laceration- Periurethral Laceration-Degree: 1st - [place] Data Baby 1 Male at 1 minute: 8 at 5 minutes: 9 Weight: 3.203 kg Home with Mother: Yes Complications: No - Diagnosis Test Laboratory: Temp Pulse Resp BP Pulse Ox 97.9 F 83 16 131/92 H 99 08/30/17 07:38 08/30/17 07:38 08/30/17 07:38 08/30/17 07:38 08/30/17 07:38 08/27/17 08/27/17 08/27/17 10:35 11:26 13:38 RBC 4.29 Hgb 12.9 Hct 38.0 Urine Opiates Screen NEGATIVE 08/29/17 06:56 RBC 2.77 L Hgb 8.2 L D Hct 24.6 L Urine Opiates Screen - Discharge information/Instructions Discharge Activity: Activity As Tolerated, No Lifting Over 10 Pounds, No Lifting /Push/Pulling, Pelvic Rest Discharge Diet: As Tolerated, Regular Disposition: HOME, SELF-CARE Follow up with: [facility] in: 1, Weeks - check bp 1 week
--- NOTE | 2017-09-09 10:04 | Delivery Summary ---
Del Sum A-C Datetime Report Generated by CPN: 09/09/2017 10:03 DELIVERY PERSONNEL DELIVERY PERSONNEL: [id number] Delivery Doctor:: Radha Mcdonald CNM Labor and Delivery Nurse:: YUMIKO Palma Labor and Delivery Nurse:: YUMIKO Simons Generating Plant Superintendent/DELIVERY COORDINATOR: Kristie Garcia, ST Additional Personnel: : Faiza Mathis RN MATERNAL INFORMATION Delivery Anesthesia: Epidural Medications After Delivery: Pitocin Bolus-Please Comment; Pitocin Drip 20 Units/1000ml NSS Meds After Delivery Comment: Cytotec 1000 mcg OR at 1412 Estimated Blood Loss (ml): 500 Maternal Complications: None Provider Comments: OA VIABLE MALE WITH SPONTANEOUS CRY. CORD DOUBLE CLAMPED AND CUT BY FOB. PLACENTA EXPRESSED-INTACT WITH 3VC AND TRAILING MEMBRANES. LEFT LABIAL AND POSTERIOR FIRST DEGREE LACERATIONS REPAIRED UNDER EPIDURAL ANESTHESIA. CYTOTEC 1000MCG OR GIVEN FOR UTERINE ATONY. MOTHER AND INFANT STABLE IN L_D #3 LABOR SUMMARY EDC: 09/08/2017 00:00 No. Babies in Womb: 1 Attempted: No Labor Anesthesia: Epidural LABOR INFORMATION Reason for Induction: Gestational Hypertension Onset of Labor: 08/28/2017 09:48 Complete Dilatation: 08/28/2017 13:12 Cervical Ripening Agents: Cytotec @ Cervical Ripening Agents: Cytotec @ 25 mcg PV Cervical Ripening Agents: Cytotec @ 25 Cervical Ripening Agents: Cytotec @ 50 Oxytocin: Induction Group B Beta Strep: negative Steroids Given: None Reason Steroids Not Administered: Not Applicable MEMBRANES Membranes Rupture Method: Artificial Rupture of Membranes: 08/28/2017 09:48 Length of Rupture (hr): 3.83 Amniotic Fluid Color: Clear Amniotic Fluid Amount: Small STAGES OF LABOR Stage 1 hr: 3 Stage 1 min: 24 Stage 2 hr: 0 Stage 2 min: 26 Stage 3 hr: 0 Stage 3 min: 17 Total Time in Labor hr: 4 Total Time in Labor min: 7 VAGINAL DELIVERY Episiotomy: None Laceration #1: Vaginal Laceration Extension #1: First Degree Other Laceration: left labial extending to periurethral Laceration Repair: Yes Sponge Count Correct: N/A Sharps Count Correct: N/A CSECTION DELIVERY Primary Indication: N/A Secondary Indication: N/A CSection Incidence: N/A Labor: N/A Elective: N/A CSection Incision: N/A BABY A INFORMATION Infant Delivery Date/Time: 08/28/2017 13:38 Method of Delivery: Vaginal Born in Route : No : N/A Forceps: N/A Vacuum Extraction: N/A Shoulder Dystocia : No PRESENTATION/POSITION BABY A Presentation: Cephalic Cephalic Presentation: Vertex Vertex Position: Left Occipital Anterior Breech Presentation: N/A PLACENTA INFORMATION BABY A Placenta Delivery Time : 08/28/2017 13:55 Placenta Method of Delivery: Expressed Placenta Status: Delivered SCORES BABY A Heart Rate 1 min: >100 bpm Resp Effort 1 min: Good Cry Reflex Irritability 1 min: Cough or Sneeze or Pulls Away Muscle Tone 1 min: Active Motion Color 1 min: Blue/Pale Resuscitation Effort 1 min: Tactile Stimulation SCORE 1 MIN: 8 Heart Rate 5 min: >100 bpm Resp Effort 5 min: Good Cry Reflex Irritability 5 min: Cough or Sneeze or Pulls Away Muscle Tone 5 min: Active Motion Color 5 min: Body [place], Extremities Blue Resuscitation Effort 5 min: N/A SCORE 5 MIN: 9 Resuscitation Effort 10 min: N/A INFORMATION BABY A Gestational Age at Delivery: 38.3 Gestational Status: Early Term- 37- 38.6 Weeks Infant Outcome : Liveborn Condition : Stable Infant Sex: Male IDENTIFICATION BABY A Infant Verification Date/Time: 08/28/2017 13:38 ID Band Number: [id number] Mother's Name Verified: Yes Infant RN Verifying : Renee [place] [facility] Additional Verifying Personnel: C Dodge RN WEIGHT/LENGTH BABY A Birthweight (gm): 3200 Weight (lb): 7 Weight (oz): 1 Length (in): 20.50 Length (cm): 52.07 CORD INFORMATION BABY A No. 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 : I was personally available for consultation and serving as supervising physician for the MLP.
== END 2017-08-30 11:00 | disposition home or self-care (01) | DRG 775 ==
LOC: LC 10:32 → LR 11:05 → 2S 08-28 16:40
PROVIDERS: ADMIT Obstetrics & Gynecology; ATTEND Obstetrics & Gynecology
PROC: 10E0XZZ Delivery of Products of Conception, External Approach (ICD-10-PCS; principal; 2017-08-28)
PROC: 0HQ9XZZ Repair Perineum Skin, External Approach (ICD-10-PCS; 2017-08-28)
PROC: 0UQMXZZ Repair Vulva, External Approach (ICD-10-PCS; 2017-08-28)
DX: O13.4 Gestational [pregnancy-induced] hypertension without significant proteinuria, complicating childbirth (principal); D62 Acute posthemorrhagic anemia; O99.334 Smoking (tobacco) complicating childbirth; F17.210 Nicotine dependence, cigarettes, uncomplicated; O99.02 Anemia complicating childbirth; O70.0 First degree perineal laceration during delivery; O71.82 Other specified trauma to perineum and vulva; Z37.0 Single live birth; Z3A.38 38 weeks gestation of pregnancy
CPT/HCPCS: 36415; 80053; 80307; 81001; 82570; 83615; 84156; 84550; 85025; 85027; 86592; 86850; 86900; 86901; J2300; J2370; J2550; J2590; J3010; J3490

== ENCOUNTER → 2017-09-04 | Outpatient (CLI) | payer SELFPAY ==
[2017-09-04 10:09] LABS: ABSOLUTE BASOPHILS # (AUTO) 0.1 10^3/uL (0.0-0.2); ABSOLUTE EOSINOPHILS # (AUTO) 0.4 10^3/uL (0.0-0.6); ABSOLUTE LYMPHOCYTES (AUTO) 2.3 10^3/uL (0.5-4.7); ABSOLUTE MONOCYTES (AUTO) 0.9 10^3/uL (0.1-1.4); ABSOLUTE NEUT (AUTO) 8.3 10^3/uL (1.7-8.2); BASOPHILS % (AUTO) 1.1 % (0-2); EOSINOPHILS % (AUTO) 3.1 % (0-6); HEMATOCRIT 30.6 % (36.0-47.0); HEMOGLOBIN 10.3 g/dL (12.0-15.5); LYMPHOCYTES % (AUTO) 19.4 % (13-45); MEAN CORPUSCULAR HGB CONC 33.8 g/dL (32.0-36.0); MEAN CORPUSCULAR VOLUME 89 fl (80-97); MONOCYTES % (AUTO) 7.8 % (3-13); PLATELET COUNT 440 10^3/uL (150-450); RED BLOOD COUNT 3.44 10^6/uL (3.72-5.28); RED CELL DISTRIBUTION WIDTH 13.4 % (11.5-14.0); SEGMENTED NEUTROPHILS % (AUTO) 68.6 % (42-78); TOTAL CELLS COUNTED % (AUTO) 100 %; WHITE BLOOD COUNT 12.1 10^3/uL (4.0-10.5)
[2017-09-04 10:45] LABS: ALANINE AMINOTRANSFERASE 55 U/L (5-35); ALKALINE PHOSPHATASE 127 U/L (50-135); ANION GAP 11 (5-19); ASPARTATE AMINO TRANSFERASE 33 U/L (5-30); BILIRUBIN,DIRECT 0.2 mg/dL (0.0-0.4); BILIRUBIN,TOTAL 0.2 mg/dL (0.2-1.3); BLOOD UREA NITROGEN 9 mg/dL (7-20); CARBON DIOXIDE 25 mmol/L (22-30); CHLORIDE 106 mmol/L (98-107); GLUCOSE 92 mg/dL (75-110); LDH 708 U/L (340-670); POTASSIUM 3.7 mmol/L (3.6-5.0); SODIUM 142.1 mmol/L (137-145); TOTAL PROTEIN 6.8 g/dL (6.3-8.2); URIC ACID 4.1 mg/dL (2.5-6.2)
== END ==
LOC: OD 08:44
PROVIDERS: ATTEND Advanced Practice Midwife
DX: O13.9 Gestational [pregnancy-induced] hypertension without significant proteinuria, unspecified trimester (principal); Z3A.00 Weeks of gestation of pregnancy not specified
CPT/HCPCS: 36415; 80053; 83615; 84550; 85025